=== PATIENT | female | born 1955 | race Caucasian/White ===

== ENCOUNTER → 2018-06-29 08:32 | Outpatient (CLI) | payer OTHER, SELFPAY ==
--- NOTE | 2018-06-29 08:37 | US_ITS ---
STUDY: ABDOMINAL ULTRASOUND - RIGHT UPPER QUADRANT REASON FOR VISIT: Female, 62 years old. Abdominal pain and bloating TECHNIQUE: Ultrasound evaluation of the right upper quadrant was performed with real-time and static kelly-scale imaging. TECHNICAL QUALITY: Adequate. COMPARISON: None. FINDINGS: Liver: The liver measures 13 cm. There is normal echogenicity of the liver. The bile ducts are within normal limits. There is hepatic color flow. The direction of portal flow is hepatopetal. There is no demonstrated mass lesion. Gallbladder: Normal distended gallbladder. The gallbladder wall measures 1.5 mm. There is a negative sonographic Saunders's sign. There is no pericholecystic fluid. There are no gallstones. Common Bile Duct (C.B.D.): The common bile duct measures 4 mm. Pancreas: There is normal echogenicity of the pancreas. There is no demonstrated pancreatic mass or cyst. Right Kidney: Normal size of the right kidney. The right kidney measures 10.1 cm. Normal renal cortex. The right cortex measures 1.3 cm. There is a 1.7 cm simple cyst. There is no right hydronephrosis. US/Abdomen Limited IMPRESSION: 1. No gallstones or biliary obstruction. 2. Simple right renal cyst. Electronically Signed: Marcellus Simms MD at 20:47 EST , Service support ,
== END ==
PROVIDERS: Family Provider Family Medicine; PCP Family Medicine; Referring Provider Family Medicine; Visit Provider Family Medicine
DX: R10.9 Unspecified abdominal pain (principal)
CPT/HCPCS: 76705

== ENCOUNTER → 2018-10-29 | Outpatient (CLI) | payer OTHER, SELFPAY ==
[2016-07-23 22:45] VITALS: BMI 25.0
[2018-11-04 13:43] LABS: Arsenic 7245 3 ug/L (2-23); Lead, Blood 1 ug/dL (0-4); Mercury, Blood 85324 1.5 ug/L (0.0-14.9)
[2018-11-04 13:45] LABS: Arsenic 7245 4 ug/L (2-23)
[2018-11-04 13:46] LABS: Mercury, Blood 85324 1.8 ug/L (0.0-14.9)
== END | disposition home or self-care (01) ==
LOC: LAB.FUTURE 14:21
PROVIDERS: Family Provider Family Medicine; PCP Family Medicine; Referring Provider Family Medicine; Visit Provider Family Medicine
DX: R10.9 Unspecified abdominal pain (principal)
CPT/HCPCS: 36415; 82175; 83655; 83825

== ENCOUNTER → 2019-08-07 11:20 | Outpatient (CLI) | payer OTHER, SELFPAY ==
[2016-07-23 22:45] VITALS: BMI 25.0
--- NOTE | 2019-08-07 11:26 | RAD_ITS ---
STUDY: X-RAY - PELVIS AND RIGHT HIP REASON FOR EXAM: Female, 63 years old. PAIN WORSE WHEN SITTING, NO INJURY TECHNIQUE: 3 views of the pelvis and hip. COMPARISON: None. FINDINGS: There is a non-specific bowel gas pattern. Normal visualized soft tissue structures. Normal bilateral iliac wings, sacroiliac joints and visualized sacrum. Normal bilateral superior and inferior pubic rami. Normal pubic symphysis. Normal bilateral ischial tuberosities. Normal visualized femoral head. Normal acetabulum. Normal hip joint. RAD/HIP, UNI W/ Pelvis 2-3 Views IMPRESSION: Normal x-ray examination of the pelvis and hip. Electronically Signed: Aggie Pappas MD at 17:20 EST , Service support ,
== END ==
PROVIDERS: PCP Family Medicine; Referring Provider Family Medicine; Visit Provider Family Medicine
DX: M25.551 Pain in right hip (principal)
CPT/HCPCS: 73502

== ENCOUNTER → 2025-04-24 | Outpatient (CLI) | payer OTHER, SELFPAY | END | disposition home or self-care (01) | LOC: SL 19:49 | PROVIDERS: PCP Nurse Practitioner Family; Referring Provider Nurse Practitioner Family; Visit Provider Nurse Practitioner Family | DX: G47.33 Obstructive sleep apnea (adult) (pediatric) (principal) | CPT/HCPCS: 95810 ==

== ENCOUNTER → 2025-05-29 | Outpatient (CLI) | payer OTHER, SELFPAY | END | disposition home or self-care (01) | LOC: SL 11:42 | PROVIDERS: PCP Nurse Practitioner Family; Referring Provider Nurse Practitioner Family; Visit Provider Nurse Practitioner Family | DX: Z46.89 Encounter for fitting and adjustment of other specified devices (principal) ==

== ENCOUNTER → 2025-06-11 | Outpatient (CLI) | payer OTHER, SELFPAY | END | disposition home or self-care (01) | LOC: SL 09:59 | PROVIDERS: PCP Nurse Practitioner Family; Visit Provider Nurse Practitioner Family | DX: Z00.00 Encounter for general adult medical examination without abnormal findings (principal) ==

== ENCOUNTER 2025-06-12 08:30 | Outpatient (RCR) | payer OTHER, SELFPAY ==
--- NOTE | 2024-12-24 15:12 | HP.PTEVAL ---
Patient's Visit Information Visit Information Visit Information: KIRBY CHEEMA is a 69 year old F referred to Physical Therapy by ADRIEL Flores with a diagnosis of L knee pain. Date of Evaluation: 12/24/24 Physical Therapist: Ra Dougherty, PT, ATC Visit Plan Frequency: 2x /Week Duration: 2-4 Weeks Plan: L knee strengthening, core stab ex's, balance and proprio, bike, and HEP Subjective Subjective: Pt reports she has had L knee pain for approximately 3 weeks. Pt notes she was playing pickleball at the time and then took a 5 mile hike. Pt reports no immediate pain at that time, but notes she was unable to walk the next morning. Pt denies any PMHx of L knee pain. Pt reports she had x-rays which revealed minor swelling at that time. Pt reports her knee pain is generalized throughout. Pt notes her knee feels very unstable, li8ke it wants to give out. Pt reports she has a lot of difficulty with stair negotiation secondary to pain and instability. Pt notes she has 12 stairs to enter her house that she has to negotiate one step at a time. No sleep difficulty at this time secondary to pain. Pt denies any tingling or numbness at this time. Pt denies L knee wanting to lock up or pop at this time. 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 0/10 pain while sitting here at rest, 5/10 pain at worst (with normal walking) Pain L knee: Pain Intensity (Out of 10): 0 Pain Intensity Range: 5 Objective Objective: Neuro: B LE sensation is WNL to light touch. TU sec Palpation: Crepitus with AROM of L knee. No obvious deformity. Pain along medial and lateral joint line. Obvious swelling noted. ROM: R knee 0-140 ; L knee 0-134 degrees MMT: R knee flex= 30, ext= 42#F; L knee flex= 19, ext= 13 #F Special testing: Pos apley compression, obers, McConnels, and 90/90 tests Balance/Special Test Scores Lower Extremity Functional Score: 23 Goals Goal 1:: Decrease L knee pain x 50% to aid with ambulation Goal Time Frame: 2-4 Weeks Goal 2:: Increase L knee strength to equal R knee strength to aid with return to sport Goal Time Frame: 2-4 Weeks Goal 3:: I with HEP Goal Time Frame: 2-4 Weeks Rehabilitation Potential Physical Therapy Diagnosis: Pt has L knee pain, weakness, and limited ROM secondary to degenerative changes in the L knee Rehabilitation Potential: Good Anticipated Interventions Patient/Client Instruction: Educate patient on: Condition and Plan of Care For the Purpose of:: To improve self management Therapeutic Exercise to Include: Strength training, Endurance training, Balance training, Flexibilty training, Active ROM and Dynamic Lumbar Stabilization For the Purpose of:: To decrease pain, To increase ROM and To improve muscle performance and motor function Cryotherapy (ice pack, ice massage): Yes For the Purpose of:: To decrease pain Text: Thank you for the opportunity to evaluate your patient. For Medicare and Medicare HMO plans, please review the plan of care and approve it. It will need to be FAXED BACK to us at [phone] for Medicare purposes. For Medicare only, by signing this I certify the plan of care. Please let me know if there are questions or concerns regarding this plan of care. Physician Signature: Date:
--- NOTE | 2025-03-16 10:03 | HP.PTREVAL_ITS ---
Re-Evaluation Intro: Becka Rizzo, LASHAY-C, It has been my pleasure to treat KIRBY CHEEMA over the last 3 visits for L knee menisectomy 03/12/25. Please see the progress note below for an update on the physical therapy plan of care! Subjective Subjective: DOS: 03/12/25. Pt reports she had a meniscal tear in L knee. Pt reports she had a menisectomy performed on that date. Pt reports she was feeling pretty good for 2 days afterwards, but over did it on the weekend and is sore today. Pt reports her L knee is very sore and swollen today. Pt denies any tingling or numbness at this time. Pt reports she has not had any restrictions issued to her at this time. Pt notes she is very active and just wants to get back to her normal IADL's NIRAV. Objective Objective/Function: L knee pain is 2/10 at rest, 9/10 at worst (with specific movements) Pt is having difficulty with sleep at this time. L knee ROM: 0-10-60 degrees (R= 0-140) L knee MMT: flex= 7 (R= 35), ext= (R= 52) 14 #F TU sec Girth at joint line: R knee 34 cm, L knee 36 cm Plan Plan Plan: L knee stretching and strengthening, mobs and PROM, core stab ex's, nustep for ROM, and HEP Balance/Gait/Functional tests Balance/Special Test Scores Lower Extremity Functional Score: 23 Goals Goals Goal 1:: Decrease L knee pain x 50% to aid with ambulation Goal Time Frame: 2-4 Weeks Goal 2:: Increase L knee strength to equal 90 % R knee strength to aid with return to sport Goal Time Frame: 2-4 Weeks Goal Progress: New goal Goal 3:: I with HEP Goal Time Frame: 4-6 Weeks Goal 4:: Increase L knee ROM to 0-120 degrees to aid with restoring a more normalized gait pattern Goal Time Frame: 4-6 Weeks Goal Progress: New goal Anticipated Interventions Anticipated Interventions Patient/Client Instruction: Educate patient on: Condition and Plan of Care For the Purpose of:: To improve self management Therapeutic Exercise to Include: Strength training, Endurance training, Balance training, Flexibilty training, Active ROM and Dynamic Lumbar Stabilization For the Purpose of:: To decrease pain, To increase ROM and To improve muscle performance and motor function Cryotherapy (ice pack, ice massage): Yes For the Purpose of:: To decrease pain Re-Evaluation Ending Re-evaluation ending: Please do not hesitate to contact me at [phone] by phone or Fax: if you have questions or concerns regarding this new plan of care! Sincerely, Ra Dougherty, PT, ATC
--- NOTE | 2025-05-14 10:27 | HP.PTREVAL_ITS ---
Re-Evaluation Intro: Becka Rizzo, COMMUNICATION INSTRUCTOR-C, It has been my pleasure to treat KIRBY CHEEMA over the last 17 visits for L knee menisectomy 03/12/25. Please see the progress note below for an update on the physical therapy plan of care! Subjective Subjective: My knee still swells when I do a lot. Objective Objective/Function: L knee pain ranges from 1-3/10 L knee ROM: 0-3-130 degrees L knee MMT: flex= 20 (R= 37), ext= 21 (R= 52) #F Pt is progressing well, but continues to lack functional strength at this time. Plan Plan Plan: 05/14/25- Cont with L knee stretching and strengthening, mobs and PROM, core stab ex's, nustep for ROM, and HEP Balance/Gait/Functional tests Balance/Special Test Scores Lower Extremity Functional Score: 40 Goals Goals Goal 1:: Decrease L knee pain x 50% to aid with ambulation Goal Time Frame: 2-4 Weeks Goal Progress: Goal Met Goal 2:: Increase L knee strength to equal 90 % R knee strength to aid with return to sport Goal Time Frame: 2-4 Weeks Goal Progress: Progressing Goal 3:: I with HEP Goal Time Frame: 4-6 Weeks Goal Progress: Progressing Goal 4:: Increase L knee ROM to 0-120 degrees to aid with restoring a more normalized gait pattern Goal Time Frame: 4-6 Weeks Goal Progress: Progressing Anticipated Interventions Anticipated Interventions Patient/Client Instruction: Educate patient on: Condition and Plan of Care For the Purpose of:: To improve self management Therapeutic Exercise to Include: Strength training, Endurance training, Balance training, Flexibilty training, Active ROM and Dynamic Lumbar Stabilization For the Purpose of:: To decrease pain, To increase ROM and To improve muscle performance and motor function Cryotherapy (ice pack, ice massage): Yes For the Purpose of:: To decrease pain Re-Evaluation Ending Re-evaluation ending: Please do not hesitate to contact me at [phone] by phone or if you have questions or concerns regarding this new plan of care! Sincerely, Ra Dougherty, PT, ATC
--- NOTE | 2025-06-12 08:53 | HP.PTDCSUM ---
Discharge Summary D/C summary: It has been my pleasure to treat KIRBY CHEEMA referred by ROMAN FloresC, with the diagnosis of L knee menisectomy 03/12/25 for a total of 24 visit(s). Discharge Date: Please see the following information for a summary of their discharge status. Subjective Subjective: I am ready to be done Pain L knee: Pain Intensity (Out of 10): 1 Overall Improvement % Improvement: 80 Objective Objective/Function: L knee pain 1/10 L knee MMT: flex= 31 (R= 34), ext= 31 (R= 41) L knee ROM: 0-137 degrees Pt is I with [facility] Goals Goal 1:: Decrease L knee pain x 50% to aid with ambulation Goal Progress: Goal Met Goal 2:: Increase L knee strength to equal 90 % R knee strength to aid with return to sport Goal Progress: Progressing Goal 3:: I with HEP Goal Progress: Goal Met Goal 4:: Increase L knee ROM to 0-120 degrees to aid with restoring a more normalized gait pattern Goal Progress: Goal Met Plan Plan: Discharge to HEP D/C Information d/c sentence: If there are questions or concerns regarding this patient's physical therapy, please feel free to call me at [phone]. Thank you for the referral of this patient. Sincerely, Ra Dougherty, PT, ATC Balance/Gait/Functional tests Balance/Special Test Scores Lower Extremity Functional Score: 67 Improvement % Improvement: 80
== END 2025-06-12 09:10 | disposition home or self-care (01) ==
LOC: PT 08:30
PROVIDERS: PCP Nurse Practitioner Family; Referring Provider Nurse Practitioner Family; Visit Provider Nurse Practitioner Family
DX: M25.562 Pain in left knee (principal)
CPT/HCPCS: 97110; 97161; 97530